=== PATIENT | female | born 2000 | race Caucasian/White ===

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

== ENCOUNTER 2021-09-19 11:58 | Emergency (ER) | payer OTHER ==
[~2021-09-19] VITALS: Ht 157.5 cm; Wt 52.2 kg
[~2021-09-19 11:58] MED LIST: CELEBREX200 MG PO; HYDROCODON-ACE1 EA10 PO; NORCO 5-325 TA1 EACH PO
[2021-09-20] MEDS ORDERED: VENTOLIN HFA18 GM INH (09:18)
== END 2021-09-19 12:48 | disposition home or self-care (01) ==
LOC: ED 11:58
DX: S01.512A Laceration without foreign body of oral cavity, initial encounter (principal); X99.8XXA Assault by other sharp object, initial encounter
CPT/HCPCS: 99284-25

== ENCOUNTER 2021-09-20 08:47 | Emergency (ER) | payer OTHER ==
[~2021-09-20] VITALS: Ht 157.5 cm; Wt 44.0 kg
--- OUTSIDE RECORDS SUMMARY | 2021-09-20 08:54 | XMS ---
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 Jennifer has no Care Guidelines for this patient. [facility] MO.) [facility] NOTE: Visits indicate total known visits. ED/[facility] VISIT TRACK[facility] (12 MO.) [facility] COMPLAINT: - THROAT PAIN 09/19/2021 11:58 [facility] [place] TYPE: Emergency COMPLAINT: - MEDICAL CLERANCE INPATIENT VISIT TRACKING (12 MO.) No inpatient visits to display in this time frame [email or web address]
[2021-09-20] MEDS ORDERED: VENTOLIN HFA18 GM INH (09:18)
== END 2021-09-20 11:53 | disposition home or self-care (01) ==
LOC: ED 08:47
DX: S01.512A Laceration without foreign body of oral cavity, initial encounter (principal); S10.93XA Contusion of unspecified part of neck, initial encounter; S40.012A Contusion of left shoulder, initial encounter; S70.01XA Contusion of right hip, initial encounter; S37.92XA Contusion of unspecified urinary and pelvic organ, initial encounter; S80.01XA Contusion of right knee, initial encounter; S80.12XA Contusion of left lower leg, initial encounter; S40.021A Contusion of right upper arm, initial encounter; S50.01XA Contusion of right elbow, initial encounter; Z79.51 Long term (current) use of inhaled steroids; X99.8XXA Assault by other sharp object, initial encounter
CPT/HCPCS: 70498; 99284-25; J7040; Q9967

== ENCOUNTER 2023-05-08 08:54 | Emergency (ER) | payer BC ==
[~2023-05-08] VITALS: Ht 157.5 cm; Wt 50.1 kg
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
[~2023-05-08 08:54] MED LIST changes: +CARAFATE1 GM PO; +HYDROXYZINE HCL25 MG PO; +MUCINEX600 MG PO; +PREDNISONE20 MG PO; +PROTONIX40 MG PO; +SYMBICORT 16010.2 GM INH; +VENTOLIN HFA18 GM INH
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
[2023-05-08 10:13] VITALS: BP 130/77
== END 2023-05-08 10:15 | disposition home or self-care (01) ==
LOC: ED 08:54
DX: J02.9 Acute pharyngitis, unspecified (principal); J45.909 Unspecified asthma, uncomplicated; Z88.8 Allergy status to other drugs, medicaments and biological substances; Z79.899 Other long term (current) drug therapy
CPT/HCPCS: 87651; 99283; A9270; J8540

== ENCOUNTER 2024-10-28 09:24 | Emergency (ER) | payer OTHER ==
[~2024-10-28] VITALS: Ht 157.5 cm; Wt 50.8 kg
[2024-10-28 09:44] LABS: BILIRUBIN, URINE NEGATIVE (negative); BLOOD/HGB, URINE NEGATIVE (Negative); KETONE, URINE TRACE (Negative); LEUK ESTERASE, URINE NEGATIVE (negative); NITRITE, URINE NEGATIVE (negative); PH, URINE 7.5 (5-7)
[2024-10-28] MEDS ORDERED: ondansetron HCL 4 MG/2 ML VIAL IV ONE ×2 (09:45→11:30)
[2024-10-28] MEDS ORDERED: SODIUM CHLORIDE 0.9% 1,000 ML IV ONE (09:45)
[2024-10-28] MEDS ORDERED: KETOROLAC TROMETHAMINE 15 MG/ML VIAL IV ONE (09:45)
[2024-10-28 10:09] LABS: BASOPHILS 0.2 % (0-2); EOSINOPHILS 0.5 % (0-6); HEMATOCRIT 46.4 % (35.0-50.0); HEMOGLOBIN 15.4 g/dL (12.0-18.0); MCH 30.8 (27-36); MCHC 33.2 g/dl (30-36); MCV 92.7 fl (81-99); MONOCYTES 6.2 % (0-12); NEUTROPHILS 81.1 % (39-80); PLATELET COUNT 223 K/uL (140-440); RBC 5.01 M/ul (4.3-5.7)
[2024-10-28 10:19] LABS: ALBUMIN 3.8 g/dL (3.4-5.0); ALBUMIN/GLOBULIN RATIO 1.03 (1.1-2.4); ANION GAP 11.7 (7-21); BILIRUBIN, TOTAL 0.5 mg/dL (0.2-1.0); BUN/CREATININE RATIO 7.57 (6.0-28.6); CALCIUM 9.4 mg/dL (8.5-10.1); CREATININE, SERUM 0.66 mg/dL (0.55-1.02); POTASSIUM 3.7 mmol/L (3.5-5.1); PROTEIN, TOTAL 7.5 g/dL (6.4-8.2)
[2024-10-28] MEDS ORDERED: ONDANSETRON ODT8 MG PO (11:45)
[2024-10-28] MEDS ORDERED: HYDROCODON-ACE1 EA10 PO (11:47)
[2024-10-28 12:10] VITALS: BP 111/70
== END 2024-10-28 12:10 | disposition home or self-care (01) ==
LOC: ED 09:24
PROVIDERS: Emergency Medicine
DX: R10.11 Right upper quadrant pain (principal); J45.909 Unspecified asthma, uncomplicated; Z88.8 Allergy status to other drugs, medicaments and biological substances; Z79.899 Other long term (current) drug therapy
CPT/HCPCS: 36415; 74177; 76705; 80053; 81003; 83690; 84703; 85025; 96361; 96375; 96376; 99284-25; J1885; J2405; J7030; Q9967

== ENCOUNTER 2024-12-18 02:07 | Emergency (ER) | payer OTHER ==
[~2024-12-18] VITALS: Ht 157.5 cm; Wt 45.0 kg
[~2024-12-18 02:07] MED LIST changes: +ONDANSETRON ODT8 MG PO
[2024-12-18] MEDS ORDERED: KETOROLAC TROMETHAMINE 30 MG/ML VIAL IV ONE (02:30)
[2024-12-18 02:36] LABS: BASOPHILS 0.3 % (0-2); EOSINOPHILS 6.1 % (0-6); HEMATOCRIT 40.2 % (35.0-50.0); HEMOGLOBIN 13.6 g/dL (12.0-18.0); LYMPHOCYTES 32.3 % (24-44); MCH 30.6 (27-36); MCHC 33.9 g/dl (30-36); MCV 90.3 fl (81-99); MONOCYTES 8.6 % (0-12); NEUTROPHILS 52.7 % (39-80); PLATELET COUNT 199 K/uL (140-440); RBC 4.45 M/ul (4.3-5.7); RDW 12.9 (10.5-15.0)
[2024-12-18 02:50] LABS: ALBUMIN 3.2 g/dL (3.4-5.0); ANION GAP 9.5 (7-21); BILIRUBIN, TOTAL 0.3 mg/dL (0.2-1.0); BUN/CREATININE RATIO 14.1 (6.0-28.6); CALCIUM 8.8 mg/dL (8.5-10.1); CREATININE, SERUM 0.78 mg/dL (0.55-1.02); POTASSIUM 3.5 mmol/L (3.5-5.1); PROTEIN, TOTAL 6.4 g/dL (6.4-8.2)
[2024-12-18 02:51] LABS: BILIRUBIN, URINE NEGATIVE (negative); BLOOD/HGB, URINE NEGATIVE (Negative); KETONE, URINE TRACE (Negative); LEUK ESTERASE, URINE NEGATIVE (negative); NITRITE, URINE NEGATIVE (negative)
[2024-12-18 04:43] VITALS: BP 100/67
== END 2024-12-18 04:44 | disposition home or self-care (01) ==
LOC: ED 02:07
PROVIDERS: Internal Medicine
DX: R10.2 Pelvic and perineal pain (principal); J45.909 Unspecified asthma, uncomplicated; Z88.8 Allergy status to other drugs, medicaments and biological substances
CPT/HCPCS: 36415; 76830; 76856; 80053; 81003; 84703; 85025; 96374; 99284-25; J1885